=== PATIENT | female | born 1985 | race American Indian/Alaskan Native ===

== ENCOUNTER 2017-06-27 07:15 | Observation (INO) | payer OTHER ==
[2017-06-23 12:59] VITALS: BMI 32.6
[2017-06-27] MEDS ORDERED: Lidocaine 1% Inj (20ml) ONE (07:34)
[2017-06-27] MEDS ORDERED: ceFAZolin IV 1 gm in Dextrose 0 GM/0 ML BAG IVPB ONE (07:34)
[2017-06-27] MEDS ORDERED: Bupivacaine 0.5% Inj(30mL) ONE (07:34)
[2017-06-27] MEDS ORDERED: Propofol 10 mg/ml Inj (20 ML) ONE (07:53)
[2017-06-27] MEDS ORDERED: Midazolam 2 MG/2 ML VIAL ONE (07:53)
[2017-06-27] MEDS ORDERED: ceFAZolin IV 2 gm in Dextrose 1 GM/50 ML BAG IVPB ONE (07:54)
[2017-06-27] MEDS ORDERED: Lactated Ringer's 1,000 ML IV ONE ×3 (08:09→13:59)
[2017-06-27] MEDS ORDERED: Bupivacaine HCl 0.25% PF (10 ml) Inj ONE ×2 (08:12)
[2017-06-27] MEDS ORDERED: Oxycodone/Acetaminophen 5/325 mg Tab PO PRN (11:10)
--- NOTE | 2017-06-27 11:13 | PCM.SURG1 ---
Surgeon's Initial Post Op Note - Surgeon's Notes Surgeon: Dr. Chaney Community [employer] Therapist: Dr. Garibay, Dr. Dale Type of Anesthesia: General LMA, Block Regional Pre-Operative Diagnosis: Right lateral ankle instability, soft tissue mass Operative Findings: see dictation Post-Operative Diagnosis: same Operation Performed: Right lateral ankle stabilization, excision of soft tissue mass Specimen/Specimens Removed: Right foot soft tissue mass Estimated Blood Loss: EBL {In ML}: 10 Blood Products Given: N/A Drains Used: No Drains Post-Op Condition: Good Date of Surgery/Procedure: 06/27/17 Time of Surgery/Procedure: 11:12
[2017-06-27] MEDS: Oxycodone/Acetaminophen 5/325 mg Tab PO PRN (18:39)
[2017-06-28] MEDS: Oxycodone/Acetaminophen 5/325 mg Tab PO PRN ×4 (02:30→21:47)
[2017-06-28] MEDS ORDERED: Pneumococcal 23-Valent Vaccine IM ONE (10:00)
--- NOTE | 2017-06-28 12:02 | CP.SDSHP ---
Same Day Surgery H & P - History Proposed Procedure: right lateral ankle stabilization, excision of soft tissue mass Pre-Op Diagnosis: right lateral ankle instability, soft tissue mass - Previous Medical/Surgical History Pain: 4.Moderate Pain - Allergies Allergies: Allergies No Known Allergies Allergy (Verified 06/13/17 12:35) - Physical Exam Vital Signs: Vital Signs 06/28/17 06/28/17 06/28/17 04:00 08:00 09:04 Temperature 98.3 F 98.2 F Pulse Rate 67 77 78 Respiratory 20 18 Rate Blood Pressure 107/71 100/63 118/76 O2 Sat by Pulse 97 97 Oximetry Neuro: WNL Heart: WNL Lungs: WNL GI: WNL - {Optional Preform as Required} Integument: Other (painful soft tissue mass noted to the dorsum of the right foot) Ortho: Other (pain to the lateral aspect of right ankle) - Impression Impression: Pt was seen and examined in SDS. Pt NPO status was confirmed. All Pre-op testing and clearance was in the chart. Pt has exhausted all conservative treatment at this time and is opting for surgical intervention. Pt was explained procedure and post-operative course. All pt's questions were answered to satisfaction. No guarantees were made. Pt understands all risks, benefits and complications of procedure. Pt will follow-up with Dr. Chaney Pt. Evaluated Today:Candidate for Anesthesia & Procedure: Yes - Date & Time Date: 06/27/17 Time: 07:00 Short Stay Discharge - Short Stay Discharge Admitting Diagnosis/Reason for Visit: SPRAIN OF TIBIOFIBULAR LIGAMENT OF LEFT ANKLE, SUB Disposition: HOME/ ROUTINE
[2017-06-28 15:58] VITALS: BP 103/74; PULSE 86; RESP 20; TEMP 98.3; O2SAT 99
--- NOTE | 2017-06-28 16:34 | CP.PCM.DIS ---
Provider - Provider Date of Admission: 06/27/17 10:56 Attending physician: Anil Chaney DPM Time Spent in preparation of Discharge (in minutes): 35 Diagnosis - Discharge Diagnosis (1) Soft tissue mass Status: Acute (2) Right ankle instability Status: Acute Hospital Course - Hospital Course Hospital Course: patient had a right lateral ankle stablization and removal of soft tissue mass from the right foot yesterday. Patient stayed overnight for observation and patient is to be d/c home today with pain medication and eliquis. patient to follow up with Dr. Chaney tomorrow in office Discharge Exam - Head Exam Head Exam: ATRAUMATIC - Eye Exam Eye Exam: Normal appearance - Respiratory Exam Respiratory Exam: NORMAL BREATHING PATTERN - Cardiovascular Exam Cardiovascular Exam: REGULAR RHYTHM - GI/Abdominal Exam GI & Abdominal Exam: Normal Bowel Sounds - Extremities Exam Additional comments: dressing c/d/i to RLE - Neurological Exam Neurological exam: Alert, Oriented x3 - Psychiatric Exam Psychiatric exam: Normal Affect, Normal Mood Discharge Plan - Follow Up Plan Condition: GOOD Disposition: HOME/ ROUTINE Instructions: Oxycodone/Acetaminophen (By mouth), Apixaban (By mouth), Crutch Instructions (DC) Additional Instructions: -Patient in good condition for discharge home. Pt to resume medications per medical reconciliation. Resume regular diet. Please keep dressing clean, dry, & intact to surgical site, use plastic bag over bandage for showering, use crutches at all times when ambulating and non WB to right lower extremity, call office if you see signs of infection (redness, swelling, malodor), please make an appointment to see Dr. Chaney in office tomorrow
--- NOTE | 2017-06-29 07:04 | OP ---
PROCEDURE DATE: 06/27/2017 PREOPERATIVE DIAGNOSES: 1. Right lateral ankle instability. 2. Right foot soft tissue mass. POSTOPERATIVE DIAGNOSES: 1. Right lateral ankle instability. 2. Right foot soft tissue mass. PROCEDURES PERFORMED: 1. Right lateral ankle stabilization. 2. Right foot excision of soft tissue mass. SURGEON: Anil Gallego DPM. ASSISTANTS: Dr. Diallo Garibay, PGY-[address] Meme Dale, PGY-2 TYPE OF ANESTHESIA: General with sedation. INDICATION: This patient is a 31-year-old female with the aforementioned diagnoses. The patient has been treated by Dr. Gallego in his office on an outpatient basis, for which she has exhausted multiple course of conservative treatment options. The patient seeks surgical intervention at that time. All alternatives, benefits, complications, and risks of the surgical procedure were explained to the patient at length. The patient verbalized understanding and wished to proceed. All questions were addressed and answered. No guarantees were given nor implied. The patient signed the consent. NPO status was confirmed prior to bringing the patient to the operating room. OPERATIVE PROCEDURE: The patient was brought into the operating room and placed on the operating room table in the supine position. A pneumatic thigh tourniquet was placed around the patient's right thigh. After induction of general and sedation, the right foot and ankle were prepped and draped in the usual sterile manner and the procedure began. PROCEDURE #1: Right lateral ankle stabilization. Attention was directed to the lateral aspect of the patient's right ankle where a curvilinear incision was made just distal and anterior to the lateral malleolus with a #15 blade. The incision was deepened through superficial and subcutaneous tissues utilizing sharp and blunt dissection. Care was taken to retract all vital neurovascular structures throughout the course the procedure. All superficial bleeding vessels were cauterized utilizing electrocautery. Dissection was then carried down to the level of the extensor retinaculum. At this time, a #15 blade was then utilized to make incision through the extensor retinaculum and the ankle joint capsule including the anterior talofibular ligament. Pickups and a #15 blade then utilized to free the periosteum, capsular tissue, and ATFL from the distal aspect of the lateral malleolus. Next, attention directed to the lateral aspect of the talus, where again pickups and a #15 blade were utilized to free the ankle joint capsule and ATFL ligament from the lateral aspect of the talus. At this time, the lateral shoulder of the talus could be adequately visualized as well as the anterior and the distal aspects of the lateral malleolus. Before incising the ankle joint capsule and the lateral ankle ligament, intraoperative fluoroscopy was utilized to perform a talar tilt stress test, which was positive for moderate ankle instability. Intraoperative fluoroscopy was also utilized to perform a dorsiflexion and eversion test of the syndesmosis, which was negative and indicated that the syndesmosis was stable. Streator elevator was then utilized to free the distal portion of the lateral malleolus with lateral malleolus not adequately visualized. The drill for the Arthrex Mini SutureTak was utilized to drill 3 holes in the distal aspect of the lateral malleolus. Next, 3 Arthrex Mini SutureTaks were inserted utilizing standard technique into the previously drilled holes. The corresponding suture tails from the SutureTaks were then weaved into the distal portion of the ankle joint capsule, ATFL ligament, and extensor retinaculum in a basket-weave fashion. The suture was then interlocked. Attention was then directed back to the lateral malleolus where utilizing the drill, two holes for the Arthrex Mini PushLocks were drilled in the lateral aspect of the fibula just superior to the previously inserted suture tack. Next, three strands from each of the suture tacks were gathered and inserted into one of the push locks. The push lock was then inserted into the lateral most hole, previously drilled in the fibula and inserted utilizing standard technique. Next, a second Arthrex Mini PushLock was utilized and the remaining three strands from the suture tacks were passed through the push lock. The push lock was then inserted into the remaining superior drill hole in the fibula and inserted utilizing standard technique. While inserting the mini push locks, the foot was held in an everted and dorsiflexed position and trying to correct for the lateral ankle instability. The push locks were then removed and it was noted at that time that the deformity had been adequately corrected and lateral stress test was negative from the appropriate repair of the lateral ankle ligaments. The sutures were then cut flush with the suture anchors. The surgical area was then flushed with copious amounts of sterile normal saline. Next, utilizing 2-0 Vicryl suture, the remaining portions of the extensor retinaculum were repaired. The deep layers were then approximated utilizing 3-0 Vicryl suture. The subcutaneous tissues were then reapproximated utilizing 4-0 Vicryl suture. The skin was then reapproximated utilizing 4-0 Prolene suture. PROCEDURE #2: Right foot excision of soft tissue mass. Attention was directed to the dorsal aspect of the right forefoot where a palpable soft tissue mass could be identified. A linear longitudinal incision was then made directly overlying this area with a #15 blade. The incision was deepened through the superficial and subcutaneous tissue utilizing sharp and blunt dissection. Care was taken to retract all vital neurovascular structures throughout the duration of the procedure. At this time, an expansive soft tissue mass could be visualized. It was noted that the soft tissue mass contained fatty and fibrous tissue with invaginated vessels. Utilizing dissecting scissors and a hemostat, the soft tissue mass was freed from the underlying tissues. All portions of the soft tissue mass once excised were passed from the surgical field to the back table to be sent to pathology. It was noted that the soft tissue mass extended over metatarsals 2, 3 and 4 and deep into the secondary hemostasis. Care was taken to adequately excise all portions of the soft tissue mass from the deep underlying tissues. Once all visible portions of the soft tissue mass were excised from surgical area, the area was inspected and it was noted that there were no more visible deep protrusions of the soft tissue mass. The surgical area was then flushed with copious amounts of sterile normal saline. The deep layers were then approximated utilizing 3-0 Vicryl suture. The subcutaneous tissues were then reapproximated utilizing 4-0 Vicryl suture. The skin was then reapproximated utilizing 4-0 Prolene suture. Intraoperative injections consisted of 10 mL of 1:1 mixture of 1% lidocaine plain and 0.5% of Marcaine plain. Postoperative bandages consisted of Xeroform, PSG, plain,and Hancock compression dressing with cast padding and ODILIA bandages. POSTOPERATIVE CONDITION: The patient tolerated the procedure and anesthesia well with no apparent complications. The patient was escorted from the OR to the recovery room with vital signs stable and neurovascular status intact. The patient will follow up with Dr. Gallego in his office on an outpatient basis. Diallo Garibay DPM [facility]
== END 2017-06-28 22:09 | disposition home or self-care (01) ==
LOC: C.SDS 07:15 → C.9S 10:56 → C.6T 18:01
PROVIDERS: ADMIT Podiatrist Foot & Ankle Surgery; ATTEND Podiatrist Foot & Ankle Surgery
DX: S93.432D Sprain of tibiofibular ligament of left ankle, subsequent encounter (principal); M25.371 Other instability, right ankle; M25.871 Other specified joint disorders, right ankle and foot; D36.7 Benign neoplasm of other specified sites
CPT/HCPCS: 27618; 27871; 88304; 88307; 96372; 97116; 97161; 97530; G0378; G8978; G8979; J0690; J1644; J1885; J2250; J2270; J2405; J2704; J2765; J3010; J7120

== ENCOUNTER 2017-07-03 08:45 | Emergency (ER) | payer OTHER ==
[2017-07-03 09:02] VITALS: BMI 31.9
[2017-07-03] MEDS ORDERED: Oxycodone/Acetaminophen 5/325 mg Tab PO STA (09:46)
[2017-07-03] MEDS ORDERED: Oxycodone/Acetaminophen 5/325 mg Tab ONE (10:04)
--- NOTE | 2017-07-03 10:32 | CP.PCM.CON ---
History of Present Illness - History of Present Illness History of Present Illness: 31 year old female 6 day s/p right lateral ankle stabilization and right foot removal of soft tissue mass with Dr. Chaney was seen in the ED this morning for pain in the right foot. Patient states that last week she saw Dr. Chaney in office and he drained a hematoma from the dorsum of her right foot. She states that it felt better but yesterday the pain got worse and she noticed bleeding on her bandage. She admits to taking off her bandage yesterday. Patient states that it is hard for her to keep her foot up and stay of her foot. She admits to some nausea but denies any v/f/c/sob/p. Past Patient History - Past Medical History & Family History Past Medical History?: Yes - Past Social History Smoking Status: Light Smoker < 10 Cigarettes Daily - CARDIAC Hx Cardiac Disorders: No - PULMONARY Hx Respiratory Disorders: No - NEUROLOGICAL Hx Neurological Disorder: No - HEENT Hx HEENT Problems: Yes - RENAL Hx Chronic Kidney Disease: No - ENDOCRINE/METABOLIC Hx Endocrine Disorders: No - HEMATOLOGICAL/ONCOLOGICAL Hx Blood Disorders: No - INTEGUMENTARY Hx Dermatological Problems: Yes (keloids) - MUSCULOSKELETAL/RHEUMATOLOGICAL Hx Falls: Yes (fell off water ski) - GASTROINTESTINAL Hx Gastrointestinal Disorders: No - GENITOURINARY/GYNECOLOGICAL Hx Genitourinary Disorders: No - PSYCHIATRIC Hx Psychophysiologic Disorder: No Hx Substance Use: No - SURGICAL HISTORY Hx Surgeries: Yes Hx Dilation and Curettage: Yes Other/Comment: ankle stabilization of right foot with excision of soft tissue mass 06-27-17. - ANESTHESIA Hx Anesthesia: Yes Hx Anesthesia Reactions: No Hx Malignant Hyperthermia: No Meds Home Medications: Home Medication List Medication Instructions Recorded Confirmed Type oxyCODONE/Acetaminophen [Percocet 1 tab PO Q4 PRN #12 tab 07/03/17 Rx 5/325 mg Tab] Allergies/Adverse Reactions: Allergies Allergy/AdvReac Type Severity Reaction Status Date / Time No Known Allergies Allergy Verified 06/13/17 12:35 Physical Exam - Constitutional Appears: Well, Non-toxic, No Acute Distress - Extremities Exam Additional comments: Right lower extremity focused exam: Vasc: DP and Pt pulses palpable 2/3. CFT < 3 seconds to digits. Skin temperature warm to warm from promixal to distal, inc warmth noted to dorsum of right foot. Neuro: Gross sensation intact Derm: Edema noted to the right foot, with redness noted to the dorsum of the foot. Scant amount of sanginous drainage noted for the incision site on the dorsum of the foot. Sutures are intact, no dehiscence noted. No fluctuance, no purulence noted. Ortho: Tenderness on palpation to the dorsum of the right foot, no tenderness on palpation to the lateral surgical site - Neurological Exam Neurological exam: Alert, Oriented x3 - Psychiatric Exam Psychiatric exam: Normal Affect, Normal Mood Results - Vital Signs Recent Vital Signs: Last Vital Signs Temp 98.6 F 07/03/17 10:05 Pulse 70 07/03/17 10:05 Resp 18 07/03/17 10:05 BP 114/76 07/03/17 10:05 Pulse Ox 99 07/03/17 10:05 - Labs Result Diagrams: 07/03/17 11:16 07/03/17 11:16 Assessment & Plan - Assessment and Plan (Free Text) Assessment: 31 year old female 6 days s/p right lateral ankle stabilization and removal of soft tissue mass Plan: patient examined and evaluated discussed in detail with attending, Dr. Sanchez chart, vitals reviewed; afebrile, WBC 5 patient given 1 g ancef in ED the surgical site was manually compressed, but no drainage was expressed consent was obtained, the right foot was cleansed with betadine and using a 25 gauage needle, the medial aspect of the surgical site was entered, no sanginous was expressed, when the needle was removed, scant amount of serous drainage was noted patient dressed with DSD, modified walton compressive dressing patient to follow up with Dr. Sanchez in office tomorrow at 2 pm patient to remain non-WB to RLE with crutches patient to leave dressing c/d/i pain medication per ED attending
[2017-07-03] MEDS ORDERED: ceFAZolin IV 1 gm in Dextrose 1 GM/50 ML BAG IVPB ONE (10:43)
[2017-07-03] MEDS ORDERED: ceFAZolin 1 gm FROZEN Premix 1 GM/50 ML ML IVPB ONE (11:11)
[2017-07-03 11:22] LABS: BASO % 0.8 % (0.0-2.0); EOS # 0.2 K/uL (0.0-0.7); EOS % 3.8 % (0.0-4.0); HEMATOCRIT 38.9 % (34.0-47.0); LYMPH # 1.5 K/uL (1.0-4.3); LYMPH % 29.1 % (20.0-40.0); MEAN CELL VOLUME 89.2 fL (81.0-99.0); MEAN CORPUSCULAR HEMOGLOBIN 30.2 pg (27.0-31.0); MEAN CORPUSCULAR HGB CONC 33.9 g/dL (33.0-37.0); MEAN PLATELET VOLUME 7.2 fL (7.2-11.7); MONO # 0.7 K/uL (0.0-0.8); MONO % 13.7 % (0.0-10.0); NRBC % 0.1 % (0.0-2.0); RED CELL DISTRIBUTION WIDTH 12.5 % (11.5-14.5)
[2017-07-03 11:29] LABS: CHLORIDE 103 mmol/L (98-107); POTASSIUM 4.2 mmol/L (3.6-5.2); SODIUM 137 mmol/L (132-148)
[2017-07-03 11:32] LABS: ALKALINE PHOSPHATASE 59 U/L (38-126); ALT/SGPT 25 U/L (9-52); AST/SGOT 18 U/L (14-36); BILIRUBIN,TOTAL 0.8 mg/dL (0.2-1.3); BLOOD UREA NITROGEN 11 mg/dL (7-17); CALCIUM 8.9 mg/dl (8.6-10.4); CARBON DIOXIDE 19 mmol/L (22-30); GFR AFRICAN-AMERICAN > 60; GLUCOSE,RANDOM 82 mg/dL (65-105); TOTAL PROTEIN 7.2 g/dL (6.3-8.3)
[2017-07-03] MEDS ORDERED: Lidocaine 1% Inj (20ml) INFIL ONE (11:39)
[2017-07-03] MEDS ORDERED: Lidocaine 1% Inj (20ml) ONE (11:44)
--- NOTE | 2017-07-03 12:49 | C.PDOC ---
History Of Present Illness Pt c/o right foot pain since her foot surgery 6 days ago. Pt states she followed up with her Outreach Team Member 4 days ago and that he drained a wound hematoma. Time Seen by Provider: 07/03/17 09:35 Chief Complaint (Nursing): Lower Extremity Problem/Injury History Per: Patient Onset/Duration Of Symptoms: Days (6) Current Symptoms Are (Timing): Still Present Severity: Moderate Additional History Per: Prior Records Past Medical History Reviewed: Historical Data, Nursing Documentation, Vital Signs Vital Signs: Last Vital Signs Temp 98.6 F 07/03/17 10:05 Pulse 70 07/03/17 10:05 Resp 18 07/03/17 10:05 BP 114/76 07/03/17 10:05 Pulse Ox 99 07/03/17 12:49 - Medical History PMH: No Chronic Diseases Other Surgeries: Right foot surgery Family History: States: Unknown Family Hx - Social History Hx Alcohol Use: Yes (occasional) Hx Substance Use: No - Immunization History Hx Tetanus Toxoid Vaccination: No Hx Influenza Vaccination: No Hx Pneumococcal Vaccination: No Review Of Systems Except As Marked, All Systems Reviewed And Found Negative. Constitutional: Negative for: Fever, Weakness Cardiovascular: Negative for: Chest Pain Respiratory: Negative for: Shortness of Breath Gastrointestinal: Negative for: Vomiting, Abdominal Pain Musculoskeletal: Positive for: Foot Pain (right). Negative for: Neck Pain Skin: Positive for: Bruising Neurological: Negative for: Weakness, Numbness, Seizures, Altered Mental Status Physical Exam - Physical Exam Appears: Non-toxic, No Acute Distress Skin: Warm, Dry, Ecchymosis (right foot) Head: Atraumatic, Normacephalic Eye(s): bilateral: Normal Inspection, PERRL, EOMI Neck: Normal ROM, Supple Cardiovascular: Rhythm Regular Respiratory: Normal Breath Sounds, No Accessory Muscle Use Gastrointestinal/Abdominal: Soft, No Tenderness Back: No CVA Tenderness Extremity: Normal ROM, Tenderness (right foot), No Calf Tenderness, Other ( right foot surgical wound draining bloody fluid. No warmth of erythema. ) Pulses: Right Dorsalis Pedis: Normal Neurological/Psych: Oriented x3, Normal Motor, Normal Sensation ED Course And Treatment - Laboratory Results Result Diagrams: 07/03/17 11:16 07/03/17 11:16 Lab Interpretation: No Acute Changes O2 Sat by Pulse Oximetry: 99 Pulse Ox Interpretation: Normal Disposition Discussed With : Lb Sanchez Comment: Pt was evaluated by the Podiatry resident [place]. Dr. Sanchez wants the pt to be discharged home and f/up in his office tomorrow. Doctor Will See Patient In The: Office Counseled Patient/Family Regarding: Studies Performed, Diagnosis, Need For Followup, Rx Given - Disposition Referrals: Lb Sanchez DPM [Staff Provider] - Disposition: HOME/ ROUTINE Disposition Time: 12:55 Condition: IMPROVED Additional Instructions: Follow up with Dr. Sanchez tomorrow. Use your crutches to stay off right foot. Return to the ER if you develop fever, worsening of symptoms or if you have any other concerns. Prescriptions: oxyCODONE/Acetaminophen [Percocet 5/325 mg Tab] 1 tab PO Q4 PRN #12 tab PRN Reason: Pain, Severe (8-10) Forms: [facility] (Malagasy), General Discharge Instructions - Clinical Impression Clinical Impression: Status post right foot surgery, Pain at surgical site
[2017-07-03 13:13] VITALS: BP 118/70; PULSE 75; RESP 16; TEMP 98.2; O2SAT 100
== END 2017-07-03 13:20 | disposition home or self-care (01) ==
LOC: C.ER 08:45
DX: G89.18 Other acute postprocedural pain (principal); Z98.890 Other specified postprocedural states
CPT/HCPCS: 80053; 85025; 96365; 99285; J0690

== ENCOUNTER 2017-07-12 11:02 | Emergency (ER) | payer OTHER ==
[2017-07-12 11:02] VITALS: BMI 31.9
[2017-07-12 11:48] LABS: BASO % 0.8 % (0.0-2.0); EOS # 0.2 K/uL (0.0-0.7); EOS % 3.1 % (0.0-4.0); HEMATOCRIT 42.4 % (34.0-47.0); LYMPH # 1.3 K/uL (1.0-4.3); MEAN CELL VOLUME 90.4 fL (81.0-99.0); MEAN CORPUSCULAR HEMOGLOBIN 30.2 pg (27.0-31.0); MEAN CORPUSCULAR HGB CONC 33.4 g/dL (33.0-37.0); MEAN PLATELET VOLUME 7.1 fL (7.2-11.7); MONO # 0.5 K/uL (0.0-0.8); MONO % 8.2 % (0.0-10.0); RED CELL DISTRIBUTION WIDTH 12.6 % (11.5-14.5); WHITE BLOOD COUNT 5.5 K/uL (4.8-10.8)
[2017-07-12 11:55] LABS: CHLORIDE 105 mmol/L (98-107); POTASSIUM 4.1 mmol/L (3.6-5.2); SODIUM 141 mmol/L (132-148)
[2017-07-12 11:57] LABS: GFR AFRICAN-AMERICAN > 60
[2017-07-12 11:58] LABS: BLOOD UREA NITROGEN 12 mg/dL (7-17); CALCIUM 8.6 mg/dl (8.6-10.4); CARBON DIOXIDE 23 mmol/L (22-30); GLUCOSE,RANDOM 86 mg/dL (65-105)
--- NOTE | 2017-07-12 12:08 | C.PDOC ---
History Of Present Illness 31 y/o female presents to ED with complaints of worsening pain and poor healing wound to dorsum of right foot. Patient had surgery on 06/27/17 for tendon repair and mass removed from dorsum of foot same day. Patient reports wound has been healing poorly and draining, saw school psychological examiner and had hematoma drained. Patient was also seen at ED and given antibiotics but continues to complaint of unimproved symptoms. Patient denies new injuries, fever, chills, nausea, vomiting or any other complaints at this time. Time Seen by Provider: 07/12/17 11:18 Chief Complaint (Nursing): Lower Extremity Problem/Injury History Per: Patient History/Exam Limitations: no limitations Onset/Duration Of Symptoms: Days Current Symptoms Are (Timing): Still Present Past Medical History Reviewed: Historical Data, Nursing Documentation, Vital Signs Vital Signs: Last Vital Signs Temp 99.5 F 07/12/17 16:18 Pulse 94 H 07/12/17 16:18 Resp 18 07/12/17 16:18 BP 127/72 07/12/17 16:18 Pulse Ox 98 07/15/17 18:39 Family History: States: No Known Family Hx - Social History Hx Alcohol Use: No (occasional) Hx Substance Use: No - Immunization History Hx Tetanus Toxoid Vaccination: No Hx Influenza Vaccination: No Hx Pneumococcal Vaccination: No Review Of Systems Constitutional: Negative for: Fever, Chills Gastrointestinal: Negative for: Nausea, Vomiting Musculoskeletal: Positive for: Foot Pain Skin: Negative for: Rash Neurological: Negative for: Weakness, Numbness Physical Exam - Physical Exam Appears: Well, Non-toxic, No Acute Distress Skin: Warm, Dry, No Rash, Other (Well healing stitches to right lateral ankle, No erythema. 4x2cm wound w/tenderness to dorsum right foot, dehisced wound w/ sutures noted in base, no drainage noted, no erythema or warmth, mild swelling. ) Head: Atraumatic, Normacephalic Eye(s): bilateral: PERRL, EOMI Oral Mucosa: Moist Neck: Normal ROM, Supple Chest: Symmetrical Extremity: Capillary Refill (<2 seconds), No Deformity, Swelling (to dorsum aspect of right foot) Extremity: Bilateral: Normal ROM Pulses: Left Dorsalis Pedis: Normal, Right Dorsalis Pedis: Normal Neurological/Psych: Oriented x3, Normal Speech, Normal Motor, Normal Sensation ED Course And Treatment - Laboratory Results Result Diagrams: 07/12/17 11:42 07/12/17 11:42 O2 Sat by Pulse Oximetry: 98 (RA) Pulse Ox Interpretation: Normal Medical Decision Making Medical Decision Making: Discussed with Podiatry incident response engineer Plan: * Labs ordered * Podiatry will evaluate patient * * 227 pm pt seen by podiatry; resident attempted to remove sutures. one stich removed, then new dressing placed. pt now c/o worsening pain to foot at site of wound since bulky dressing applied. ssmaller dressing applied and analgesics given. pt advised to not weight bear, to use crutches. to elevate foot when possible., follow up podiatry on as schedule d and given number of [facility] as well/ Disposition Discussed With Dr.: Anil Chaney Doctor Will See Patient In The: Office Counseled Patient/Family Regarding: Need For Followup, Rx Given - Disposition Referrals: Anil Chaney, DPM [Staff Provider] - [facility] [Outside] Disposition: HOME/ ROUTINE Disposition Time: 14:32 Condition: STABLE Additional Instructions: Keep right foot elevated to help with swelling whenever possible. Do not weight bear on right foot- use crutches until seen by Dr Chaney. Follow up with Dr Chaney on as scheduled, and in [facility] if you'd like. Take Naproxen as directed for pain of needed. Prescriptions: Ibuprofen [Motrin] 600 mg PO TID #30 tab Forms: [facility] (Uzbek), General Discharge Instructions - Clinical Impression Clinical Impression: Visit for wound check - PA / COMMERCIAL PRODUCER / Resident Statement MD/DO has reviewed & agrees with the documentation as recorded. - Scribe Statement The provider has reviewed the documentation as recorded by the Nicole Lo All medical record entries made by the Nicole were at my direction and personally dictated by me. I have reviewed the chart and agree that the record accurately reflects my personal performance of the history, physical exam, medical decision making, and the department course for this patient. I have also personally directed, reviewed, and agree with the discharge instructions and disposition.
--- NOTE | 2017-07-12 12:41 | CP.PCM.CON ---
History of Present Illness - History of Present Illness History of Present Illness: 31 year old female with no significant PMHx presents to the ED for right foot pain. Patient had surgery on the right foot for lateral ankle stabilization and removal of soft tissue mass on 06/27/17. 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 She states that she did not follow up. She also admits to taking her dressing off and "airing out her foot". She states that she finished her antibiotics a few days ago. She admits to drainage on the top of her foot with pain. She continues to take the pain medication as prescribed to her in the ED. She admits that she uses her boot and crutches to remain non- weightbearing but does not elevate her leg often. Denies n/v/f/c/sob/cp. Past Patient History - Past Medical History & Family History Past Medical History?: Yes - Past Social History Smoking Status: Light Smoker < 10 Cigarettes Daily - CARDIAC Hx Cardiac Disorders: No - PULMONARY Hx Respiratory Disorders: No - NEUROLOGICAL Hx Neurological Disorder: No - HEENT Hx HEENT Problems: Yes - RENAL Hx Chronic Kidney Disease: No - ENDOCRINE/METABOLIC Hx Endocrine Disorders: No - HEMATOLOGICAL/ONCOLOGICAL Hx Blood Disorders: No - INTEGUMENTARY Hx Dermatological Problems: Yes (keloids) - MUSCULOSKELETAL/RHEUMATOLOGICAL Hx Falls: Yes (fell off water ski) - GASTROINTESTINAL Hx Gastrointestinal Disorders: No - GENITOURINARY/GYNECOLOGICAL Hx Genitourinary Disorders: No - PSYCHIATRIC Hx Substance Use: No - SURGICAL HISTORY Hx Surgeries: Yes Hx Dilation and Curettage: Yes Other/Comment: ankle stabilization of right foot with excision of soft tissue mass 06-27-17. - ANESTHESIA Hx Anesthesia: Yes Hx Anesthesia Reactions: No Hx Malignant Hyperthermia: No Meds Home Medications: Home Medication List Medication Instructions Recorded Confirmed Type Ibuprofen [Motrin] 600 mg PO TID #30 tab 07/12/17 Rx Allergies/Adverse Reactions: Allergies Allergy/AdvReac Type Severity Reaction Status Date / Time No Known Allergies Allergy Verified 06/13/17 12:35 Physical Exam - Constitutional Appears: Well, Non-toxic, No Acute Distress - Extremities Exam Additional comments: Right lower extremity focused exam: Vasc: DP and PT pulses palpable 2/4. CFT < 3 seconds to digits. Skin temperature warm to warm from proximal to distal,no increased warmth to the right foot. Neuro: Gross sensation intact Derm: Edema noted to the right foot- improved from last visit, Scant amount of sanginous drainage noted for the incision site on the dorsum of the foot. Dehiscends of the incision sites noted with wound to the dorsum of the foot measuring approximately 3.8 cm by 2 cm, with sutures. No fluctuance, no purulence, no malodor noted. Ortho: Tenderness on palpation to the dorsum of the right foot, no tenderness on palpation to the lateral surgical site - Neurological Exam Neurological exam: Alert, Oriented x3 - Psychiatric Exam Psychiatric exam: Normal Affect, Normal Mood Results - Vital Signs Recent Vital Signs: Last Vital Signs Temp 98.5 F 07/12/17 11:13 Pulse 98 H 07/12/17 11:13 Resp 20 07/12/17 11:13 BP 115/82 07/12/17 11:13 Pulse Ox 98 07/12/17 12:14 - Labs Result Diagrams: 07/12/17 11:42 07/12/17 11:42 Labs: Laboratory Results - last 24 hr 07/12/17 07/12/17 11:42 11:42 WBC 5.5 RBC 4.69 Hgb 14.2 Hct 42.4 MCV 90.4 MCH 30.2 MCHC 33.4 RDW 12.6 Plt Count 358 MPV 7.1 L Neut % (Auto) 63.9 Lymph % (Auto) 24.0 [place] % (Auto) 8.2 Eos % (Auto) 3.1 Baso % (Auto) 0.8 Neut # 3.5 Lymph # 1.3 [place] # 0.5 Eos # 0.2 Baso # 0.0 Sodium 141 Potassium 4.1 Chloride 105 Carbon Dioxide 23 Anion Gap 18 BUN 12 Creatinine 0.5 L Est GFR ( Amer) > 60 Est GFR (Non-Af Amer) > 60 Random Glucose 86 Calcium 8.6 Assessment & Plan - Assessment and Plan (Free Text) Assessment: 31 year old female 2 weeks s/p right lateral ankle stabilization and removal of soft tissue mass Plan: patient examined and evaluated discussed in detail with attending, Dr. Chaney chart, vitals reviewed; afebrile, WBC 5.5 wound cleansed with normal sterile saline one stitch was removed, the rest will be removed at a later date due to patients pain wound dressed with DSD patient to keep dressing clean, dry, intact patient to remain non-WB to RLE with crutches cont RICE cont pain medication patient to follow up with Dr. Chaney in office or in wound care center this week
[2017-07-12 16:18] VITALS: BP 127/72; PULSE 94; RESP 18; TEMP 99.5
[2017-07-15 18:39] VITALS: O2SAT 98
== END 2017-07-12 16:30 | disposition home or self-care (01) ==
LOC: C.ER 11:02
DX: Z48.01 Encounter for change or removal of surgical wound dressing (principal)
CPT/HCPCS: 80048; 85025; 96374; 99285; J1885

== ENCOUNTER 2017-11-16 06:19 | Emergency (ER) | payer MEDICAID, OTHER ==
[2017-11-16 06:19] VITALS: BMI 24.7
[2017-11-16] MEDS ORDERED: Albuterol-Ipratrop 3 mg / 0.5 (3 ml) UD INH STA (07:10)
--- NOTE | 2017-11-16 07:13 | C.PDOC ---
History Of Present Illness 32 yo female, presents with cough, "wheezing", subjective fever for last few days. pt states cough productive of green sputum. did not see pmd. no cp, sob, abdominal pain, did not get flu shot. Time Seen by Provider: 11/16/17 07:05 Chief Complaint (Nursing): Cough, Cold, Congestion Past Medical History Reviewed: Historical Data, Nursing Documentation, Vital Signs Vital Signs: Last Vital Signs Temp 98.1 F 11/16/17 08:49 Pulse 82 11/16/17 08:49 Resp 20 11/16/17 08:49 BP 128/78 11/16/17 08:49 Pulse Ox 96 11/16/17 08:50 - Medical History PMH: Denies: Chronic Kidney Disease Family History: States: Unknown Family Hx - Social History Hx Alcohol Use: Yes (occasional) Hx Substance Use: No - Immunization History Hx Tetanus Toxoid Vaccination: No Hx Influenza Vaccination: No Hx Pneumococcal Vaccination: No Review Of Systems Respiratory: Positive for: Cough, Wheezing Physical Exam - Physical Exam Appears: Well, No Acute Distress Skin: Normal Color, Warm, Dry Eye(s): bilateral: Normal Inspection, PERRL, EOMI Nose: Normal Throat: Normal Neck: Normal Cardiovascular: Rhythm Regular Respiratory: Rhonchi, Wheezing (bl scattered) Gastrointestinal/Abdominal: Normal Exam Back: Normal Inspection Extremity: Normal ROM ED Course And Treatment O2 Sat by Pulse Oximetry: 96 Medical Decision Making Medical Decision Making: pt with cough, wheezing - perc neg. cxr neg as read by me. lungs clear. pt offered further obs, asking for dc. Disposition - Disposition Disposition: HOME/ ROUTINE Disposition Time: 08:45 Condition: STABLE Additional Instructions: follow up with your doctor. return to er with worsening symptoms or concerns. Prescriptions: Albuterol 0.083% [Albuterol 0.083% Inhal Alexandra (2.5 mg/3 ml) UD] 2.5 mg IH Q4 PRN #20 neb PRN Reason: Wheezing Mask, Face [Nebulizer Aerosol Mask Adult] 1 dev XX PRN PRN #1 dev PRN Reason: Wheezing Nebulizer [Aeroeclipse II] 1 each MC Q4 PRN #1 each PRN Reason: Wheezing Prednisone 50 mg PO DAILY #5 tablet Instructions: Acute Bronchitis (ED) Forms: [employer] (Czech) - Clinical Impression Clinical Impression: Bronchitis
[2017-11-16] MEDS ORDERED: Albuterol-Ipratrop 3 mg / 0.5 (3 ml) UD ONE (07:23)
[2017-11-16 08:15] LABS: INFLUENZA A B NEGATIVE FOR FLU A/B (NEGATIVE)
[2017-11-16 08:50] VITALS: BP 128/78; PULSE 82; RESP 20; TEMP 98.1
--- NOTE | 2017-11-16 08:50 | RAD ---
HISTORY: cough COMPARISON: No prior. TECHNIQUE: Chest PA and lateral FINDINGS: LUNGS: No active pulmonary disease. PLEURA: No significant pleural effusion identified. No pneumothorax apparent. CARDIOVASCULAR: Normal. OSSEOUS STRUCTURES: No significant abnormalities. VISUALIZED UPPER ABDOMEN: Normal. OTHER FINDINGS: None. IMPRESSION: No active disease.
[2017-11-16 08:51] VITALS: O2SAT 96
== END 2017-11-16 09:08 | disposition home or self-care (01) ==
LOC: C.ER 06:19
DX: J40 Bronchitis, not specified as acute or chronic (principal)